=== PATIENT | female | born 1975 | race Caucasian/White ===

== ENCOUNTER 2023-04-30 21:48 | Emergency (ER) | payer BC, SELFPAY ==
--- NOTE | ~2023-04-30 | XR_ITS ---
XR ankle RT min 3V DATE: 04/30/2023 22:14 INDICATION: New onset of pain TECHNIQUE: 3 views of right ankle COMPARISON: None FINDINGS: No soft tissue swelling, fracture or dislocation of the ankle or disruption of the ankle mo rtise. No periosteal reaction or bone destruction. IMPRESSION: Negative right ankle Reviewed, dictated and finalized at location A. 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
--- NOTE | ~2023-04-30 | XR_ITS ---
XR foot RT min 3V DATE: 04/30/2023 22:14 INDICATION: New onset of foot pain TECHNIQUE: 3 views COMPARISON: None FINDINGS: There is hallux valgus and bunion deformity. No fracture or dislocation, periosteal reaction or bone destruction is detected. IMPRESSION: Hallux valgus and bunion deformity Reviewed, dictated and finalized at location A. 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
[2023-04-30 21:55] VITALS: BP 128/73; PULSE 77; RESP 16; TEMP 37.1; O2SAT 100
--- NOTE | 2023-04-30 22:52 | ED.GENADULT ---
HPI - General Adult General Chief complaint: Extremity Injury, Lower Stated complaint: right foot pain Time Seen by Provider: 04/30/23 22:36 History of Present Illness HPI narrative: 47-year-old female presenting to the emergency department for evaluation of right great toe pain. Patient states she was wearing shoes and was sitting on her feet when she had onset of right great toe pain. Patient states since that injury she has had increased pain with ambulation. Toe is very sensitive to palpation. Related Data Allergies Allergy/AdvReac Type Severity Reaction Status Date / Time cephalexin Allergy Unknown Unknown Verified 05/31/17 10:26 erythromycin base Allergy Unknown Nausea and Verified 05/31/17 10:26 Vomiting Macrolide Antibiotics Allergy Unknown Unknown Verified 05/31/17 10:26 Penicillins Allergy Unknown Unknown Verified 05/31/17 10:26 Review of Systems Review of Systems: All systems reviewed & are unremarkable except as noted in HPI and below Exam Narrative: APPEARANCE: Well appearing, no pain, no distress, well-nourished. HEAD: normocephalic, atraumatic. EYES: PERRLA/EOMI, conjunctivae clear. NOSE: Normal no drainage NECK: Supple. No adenopathy, no masses. RESPIRATORY: Airway patent, respirations nonlabored. Clear to auscultation bilaterally, no rales, rhonchi, wheezing. CARDIOVASCULAR: Regular rate and rhythm without murmurs rubs or gallops. ABDOMINAL: Soft, nontender, nondistended, normal bowel sounds MUSCULOSKELETAL: Tenderness to right great toe, no deformity, no erythema. Bunions are symmetric bilaterally. NEURO: Alert. Cranial nerves II through XII intact. Good gait. Good coordination SKIN: Warm, dry. Normal Color Course Course Emergency Course: 47-year-old female presenting to the emergency department for evaluation of right great toe pain. X-rays were negative for fracture dislocation. Patient exam is not consistent with gout or cellulitis. Patient was provided a hard sole shoe and advised to take Tylenol and ibuprofen and have close follow-up with her primary care physician. All questions concerns were addressed. Patient was comfortable with plan for discharge and close follow-up. Vital Signs Vital signs: Vital Signs Temperature 98.7 F 04/30/23 21:55 Pulse Rate 77 04/30/23 21:55 Respiratory Rate 16 04/30/23 21:55 Blood Pressure 128/73 04/30/23 21:55 Pulse Oximetry 100 04/30/23 21:55 Oxygen Delivery Room Air 04/30/23 21:55 Temperature 98.7 F 04/30/23 21:55 Pulse Rate 77 04/30/23 21:55 Respiratory Rate 16 04/30/23 21:55 Blood Pressure 128/73 04/30/23 21:55 Pulse Oximetry 100 04/30/23 21:55 Oxygen Delivery Room Air 04/30/23 21:55 Medical Decision Making Differential Diagnosis Differential Diagnosis: Gout, cellulitis, fracture, strain Vital Signs Vital Signs: Vital Signs Temperature 98.7 F 04/30/23 21:55 Pulse Rate 77 04/30/23 21:55 Respiratory Rate 16 04/30/23 21:55 Blood Pressure 128/73 04/30/23 21:55 Pulse Oximetry 100 04/30/23 21:55 Oxygen Delivery Room Air 04/30/23 21:55 Temperature 98.7 F 04/30/23 21:55 Pulse Rate 77 04/30/23 21:55 Respiratory Rate 16 04/30/23 21:55 Blood Pressure 128/73 04/30/23 21:55 Pulse Oximetry 100 04/30/23 21:55 Oxygen Delivery Room Air 04/30/23 21:55 Imaging Data Radiologist's impression: Impressions Ankle X-Ray 04/30/23 22:35 IMPRESSION: Negative right ankle Foot X-Ray 04/30/23 22:36 IMPRESSION: Hallux valgus and bunion deformity Discharge Plan Discharge Clinical Impression: Pain in toe Patient Disposition: Home, Self-Care Condition: Stable Instructions: Antibiotic Form Additional Instructions: Tylenol and ibuprofen for pain control. Hard sole shoe for comfort. Have close follow-up with your primary care physician. If you have any worsening symptoms then please call or return to the emergency department.
== END 2023-04-30 23:27 | disposition home or self-care (01) ==
PROVIDERS: Emergency Provider Emergency Medicine
DX: M79.674 Pain in right toe(s) (principal)
CPT/HCPCS: 73610; 73630; 99283